=== PATIENT | female | born 1980 | race Caucasian/White ===

== ENCOUNTER 2017-10-24 05:51 | Emergency (ER) | payer MEDICARE, MEDICAID ==
[~2017-10-24] VITALS: Ht 167.6 cm; Wt 100.2 kg
[2017-10-24 05:53] VITALS: BP 138/92
== END 2017-10-24 06:36 | disposition home or self-care (01) ==
LOC: ED 06:00
DX: J02.9 Acute pharyngitis, unspecified (principal); J04.0 Acute laryngitis; J31.0 Chronic rhinitis; Z88.0 Allergy status to penicillin; Z88.5 Allergy status to narcotic agent
CPT/HCPCS: 99283

== ENCOUNTER 2021-03-30 11:53 | Emergency (ER) | payer MEDICAID, MEDICARE ==
[~2021-03-30] VITALS: Ht 167.6 cm; Wt 96.5 kg
[2021-03-30 12:05] VITALS: BP 117/77
--- NOTE | 2021-03-30 16:33 | NUR ---
NILX 3 ATTEMPTS 1500, 1530, 1600
== END 2021-03-30 17:00 | disposition left against medical advice (07) ==
LOC: ED 12:23
DX: M25.521 Pain in right elbow (principal); Z53.29 Procedure and treatment not carried out because of patient's decision for other reasons